=== PATIENT | female | born 1960 | race Caucasian/White ===

== ENCOUNTER 2018-12-18 20:56 | Emergency (ER) | payer MEDICAID, SELFPAY ==
[2018-12-18 20:57] VITALS: BP 112/69; PULSE 86; RESP 16; TEMP 36.8; O2SAT 97; BMI 37.7
--- NOTE | 2018-12-18 21:21 | ED.VIS.GEN ---
History of Present Illness Chief Complaint: Back Detail of Chief Complaint: Back pain Informant: Patient Onset: Month(s) Current Severity: Mild Maximum Severity: Moderate Narrative: Patient presents with back pain for the past 1 to 2 months. She states that typically waxes and wanes, but tonight at work seem to be worse. It is across the mid low back. It will sometimes radiate to the right or left. She will sometimes have cramping and pain over the anterior thighs. She has no urinary symptoms. She denies any trauma. No paresthesia or weakness. Past Medical History - Allergies and Home Meds Allergies/Adverse Reactions: Allergies No Known Allergies Allergy (Verified 12/18/18 20:58) Primary Care Physician: Isaac Jolley MD [Primary Care Provider] - Prior records reviewed: Yes Past Medical History: - - Reviewed Smoking Status: Current every day smoker Review of Systems General: Denies: Chills, Fever Eyes: Denies: Visual changes - bilaterally ENT: Denies: Bilateral ear pain Cardiovascular: Denies: Chest pain Respiratory: Denies: Dyspnea, Cough Gastrointestinal: Denies: Abdominal pain, Nausea, Vomiting, Diarrhea Genitourinary: Denies: Dysuria, Hematuria Musculoskeletal: Reports: Back pain Skin: Denies: Rash Neurological: Denies: Headache Psych: Denies: Depression Endocrine: Denies: Polyuria, Polydipsia Physical Exam Vital Signs/Narrative: Vital Signs Temp Pulse Resp BP Pulse Ox 12/18/18 20:57 98.3 F 86 16 112/69 97 Inital Vital Signs reviewed: Yes General: Well nourished, Well developed Head: Normocephalic, Atraumatic ENT: Moist mucous membranes Neck: Supple, Nontender Cardiovascular: Regular rate, Regular rhythm Respiratory: No distress, CTA bilaterally Abdomen: Soft, Nontender Back: Spinal tenderness - Mild tenderness across the lower lumbar region. Minimal pain in the paraspinal muscles. Good range of motion. No skin changes. Extremities: Nontender, No edema Skin: Normal color, No rash Neurological: Alert, Oriented x3, Normal Strength, Normal Sensation Psychological: Normal affect Diagnostic/Tx/Re-eval - Medical Decision Making Patient presents with back pain consistent with musculoskeletal etiology. She will be given anti-inflammatories as she does not have diabetes or kidney problems. She will be given muscle relaxers to use as needed. ED Disposition - Plan for ED Patient: Disposition: Home or Assisted Living Diagnosis: Back pain Instructions: BACK AND NECK PAIN, General Prescriptions: cycloBENZAPRine HCl [Flexeril] 10 mg PO TID PRN #20 tablet PRN Reason: Muscle Spasm Naproxen [Naprosyn] 500 mg PO BID PRN PRN #20 tablet PRN Reason: Pain Referrals: Isaac Jolley MD [Primary Care Provider] - 1-2 Weeks
[2018-12-18] MEDS: Naproxen 500 MG Tablet PO (21:41)
[2018-12-18 21:46] VITALS: BP 110/60; PULSE 80; RESP 18; O2SAT 96
== END 2018-12-18 21:48 | disposition home or self-care (01) ==
LOC: ED 21:32
PROVIDERS: Emergency Provider Emergency Medicine; Family Provider Family Medicine; PCP Family Medicine
DX: M54.9 Dorsalgia, unspecified (principal); F17.200 Nicotine dependence, unspecified, uncomplicated
CPT/HCPCS: 99283

== ENCOUNTER 2019-04-10 07:41 | Emergency (ER) | payer MEDICAID, SELFPAY ==
[2019-04-10 07:42] VITALS: BP 116/78; PULSE 88; RESP 17; TEMP 36.8; O2SAT 99; BMI 32.3
[2019-04-10 08:24] VITALS: BP 116/78; PULSE 88; RESP 17; TEMP 36.8; O2SAT 99
--- NOTE | 2019-04-10 08:37 | ED.DCSUM_ITS ---
- ER Visit Summary Date of Service: 04/10/19 Chief Complaint: [Sore throat] History of Present Illness: The patient is a 58 F [presents the emergency department complaint of sore throat x2 days. Patient denies any fever. She had a mild cough that is mostly nonproductive. Patient is also had a runny nose. She denies any ear pain. She denies any sick contacts. Patient states she rarely gets sick. She has no medical history.] Physical Examination: [HEENT-PERRLA, EOMI. Cranial nerves II through XII grossly intact. TMs clear. Mucous membranes moist. No adenopathy. Patient has some mild pharyngeal erythema. There is no exudates. Uvula in the midline. No trismus. Cardiovascular-regular rate and rhythm without murmur or ectopy Lungs-clear to auscultation, chest wall stable without crepitus or subcu emphysema Abdomen-normoactive bowel sounds, soft, nontender, no rebound or rigidity, no peritoneal signs. Extremities-intact ?4, normal range of motion, normal pulses, atraumatic] Test Results: [Strep screen performed was negative.] Emergency Department Course and Treatment: [] Treatment Plan: [Patient will be given a prescription for Tessalon Perles. Patient advised to use ibuprofen or Tylenol for fever control or discomfort. She can try salt water gargles. Patient to follow-up with her primary care physician within next 5 to 7 days. Patient advised to return if increased difficulty breathing, difficulty swallowing, or conditions worsen anyway.] Disposition: [Discharged home in stable condition] Impression: [Viral URI] This note was generated with [employer] dictation software. It may contain incorrect words, spelling, and punctuation that were not noted in review of the chart prior to signing ED Disposition - Plan for ED Patient: Referrals: Isaac Jolley MD [Primary Care Provider] -
--- NOTE | 2019-04-10 08:38 | ED.DEP ---
ED Disposition - Plan for ED Patient: Instructions: URI, Viral, No Abx (Adult) Prescriptions: Benzonatate [Tessalon Perle] 200 mg PO TID PRN PRN #20 cap PRN Reason: Cough Prescription Printed Referrals: Isaac Jolley MD [Primary Care Provider] - 5-7 Days
== END 2019-04-10 08:48 | disposition home or self-care (01) ==
LOC: ED 08:04
PROVIDERS: Emergency Provider Emergency Medicine; Family Provider Family Medicine; PCP Family Medicine
DX: J06.9 Acute upper respiratory infection, unspecified (principal); Z72.0 Tobacco use
CPT/HCPCS: 87880; 99282